=== PATIENT | male | born 1960 | race Caucasian/White ===

== ENCOUNTER 2018-04-17 17:29 | Emergency (ER) | payer MEDICARE ==
[2018-04-17] MEDS ORDERED: ASPIRIN 81 MG CHEW TAB PO ONE (17:37)
[2018-04-17 17:49] LABS: BASOPHILS % 0.6 (0.0-1.5); EOSINOPHILS % 1.8 % (0.0-6.8); MEAN CORPUSCULAR HEMOGLOBIN 30.7 pg (28.0-34.0); MEAN CORPUSCULAR VOLUME 91.9 fl (80.0-100.0); MONOCYTES % 4.8 % (0.0-11.0); NEUTROPHILS # 10.1 # k/uL (1.4-7.7)
--- NOTE | 2018-04-17 17:55 | ED Physician Documentation ---
Chest Pain - HISTORIAN Historian: patient - HPI Chief Complaint: General Adult Additional Information: Patient states that over 3 minutes he developed some left anterior chest pain that radiated in to the back of the chest around the costophrenic level. started at about 16:45. No precipitating cause noted. Has been power washing and twisting and bending most of the days. Pain got worse on the way here. Sharp stabbing pressure feeling noted. Nothing made the pain better. Movement and ? deep breathing would make it worse. Patient states that it was constant in nature with intermittant catching spasms like feeling. Patient denies any cough. Patient is not have a history of COPD. Patient the cholesterol level is normal. Patient does smoke approximately one quarter pack per day. Patient denies any previous cardiac problems that he is aware. Patient denies any hyper patient. Patient does not have a significant family history of coronary artery disease. Onset: hours (about 1 hour ago) Timing: sudden onset Duration: constant Last known Well Date: 04/17/18 Last Known Well Time: 16:45 Last known Well Code/Unknown Code: Known Context: activity Severity: moderate Quality: pressure, sharp, stabbing Chest Pain Radiation: back. denies: jaw, arms, neck, shoulders Chest Pain Signs/Symptoms: denies: nausea, vomiting, diaphoresis Worsened By: deep breaths, movement Relieved By: nothing - ROS CONST: none. denies: fever, chills MS/LYMPH: denies: ankle swelling GI/: denies: abdominal pain, problems urinating, vomiting, nausea, diarrhea, black stools - PAST HX PR risk factors: denies: hypertension, diabetes Type 2, hyperlipidemia, cardiac disease DVT/PE Risk Factors: denies: cancer, recent surgery GI disease: other (chronic constipation/diarrhe.) Lung disease: none Surgeries/Procedures: other (brain stimulator for chronic pain, has had multiple surgeries for injury related to an accident o the left arm) Immunizations: referred to PCP - SOCIAL HX Smoking History: less than 1 pack/day Drug Use: none - FAMILY HX Family HX: none - REVIEWED ASSESSMENTS Nursing Assessment Reviewed: Yes Vitals Reviewed: Yes <Herve Polk - Last Filed: 04/17/18 19:23> - VITAL SIGNS Vital Signs: Vital Signs Temp Pulse Resp BP Pulse Ox 72 20 148/98 96 04/17/18 19:00 04/17/18 17:29 04/17/18 17:29 04/17/18 19:00 <Linda Logan - Last Filed: 04/18/18 00:29> - PAST HX Allergies/Adverse Reactions: Allergies Allergy/AdvReac Type Severity Reaction Status Date / Time codeine Allergy Verified 04/17/18 17:54 Home Medications: Ambulatory Orders Medication Instructions Recorded Amitriptyline HCl 04/17/18 Aspirin [Alexa] 81 mg PO D 04/17/18 Dicyclomine HCl 04/17/18 Progress - Progress Progress: 2129: pain is better. Notified of need for more fluids he is agreeable. Refuses any meds for muscle relaxer DG <Linda Logan - Last Filed: 04/18/18 00:29> ED Results Lab/Radiology - Orders Orders: ED Orders Category Date Time Status Continuous EKG monitoring Q30M Care 04/17/18 17:37 Active Continuous Pulse Oximetry Q30M Care 04/17/18 17:[address] IV Lock 1T Care 04/17/18 17:37 Active CHEST 2VIEW [RAD] Routine Exams 04/17/18 Ordered CBC/PLATELET/DIFF Routine Lab 04/17/18 17:45 Completed CMP Routine Lab 04/17/18 17:45 Received CREATINE KINASE Routine Lab 04/17/18 17:45 Received TROPONIN I (cTnI) Stat Lab 04/17/18 17:45 Received URINALYSIS Routine Lab 04/17/18 Uncollected Aspirin Med 04/17/18 17:37 Discontinued 324 mg PO NOW ONE EKG WITH COMPARISON Stat Ther 04/17/18 17:37 Ordered <Herve Polk - Last Filed: 04/17/18 19:23> - Lab Results Lab Results: Lab Results 04/17/18 04/17/18 04/17/18 21:18 17:45 17:45 WBC RBC Hgb Hct MCV MCH MCHC RDW Plt Count Neut % (Auto) Lymph % (Auto) Dickens % (Auto) Eos % (Auto) Baso % (Auto) Neut # (Auto) Lymph # (Auto) Dickens # (Auto) Eos # (Auto) Baso # (Auto) Reactive Lymphs % Reactive Lymphs # Sodium 138 mmol/L mmol/L 139 mmol/L mmol/L (136-145) (136-145) Potassium 4.6 mmol/L mmol/L 4.3 mmol/L mmol/L (3.5-5.1) (3.5-5.1) Chloride 103 mmol/L mmol/L 99 mmol/L mmol/L (98-107) (98-107) Carbon Dioxide 28 mmol/L mmol/L 24 mmol/L mmol/L (22-30) (22-30) BUN 21 mg/dL H mg/dL 23 mg/dL H mg/dL (9-20) (9-20) Creatinine 1.20 mg/dL mg/dL 1.80 mg/dL H mg/dL (0.66-1.25) (0.66-1.25) Estimated Creat Clear 104 69 Est GFR ( Amer) > 60 50 L (60 - ) (60 - ) Est GFR (Non-Af Amer) > 60 41 L (60 - ) (60 - ) Glucose 111 mg/dL H mg/dL 124 mg/dL H mg/dL (74-106) (74-106) Calcium 8.9 mg/dL mg/dL 10.4 mg/dL H mg/dL (8.4-10.2) (8.4-10.2) Total Bilirubin 0.2 mg/dL mg/dL 0.4 mg/dL mg/dL (0.2-1.3) (0.2-1.3) AST 18 U/L U/L 26 U/L U/L (15-46) (15-46) ALT 24 U/L U/L 28 U/L U/L (13-69) (13-69) Alkaline Phosphatase 88 U/L U/L 112 U/L U/L (38-126) (38-126) Creatine Kinase 245 U/L H U/L (55-170) Troponin I < 0.03 ng/mL L ng/mL (0.03-0.06) Total Protein 7.4 g/dL g/dL 9.4 g/dL H g/dL (6.3-8.2) (6.3-8.2) Albumin 3.9 g/dL g/dL 5.2 g/dL H g/dL (3.5-5.0) (3.5-5.0) 04/17/18 17:45 WBC 13.70 K/ul H K/ul (4.00-12.00) RBC 5.10 M/ul M/ul (3.90-5.20) Hgb 15.7 g/dL g/dL (12.0-18.0) Hct 46.8 % % (37.0-53.0) MCV 91.9 fl fl (80.0-100.0) MCH 30.7 pg pg (28.0-34.0) MCHC 33.4 g/dL g/dL (30.0-36.0) RDW 13.9 % % (11.3-14.3) Plt Count 204 K/mm3 K/mm3 (130-400) Neut % (Auto) 73.6 % % (39.0-79.0) Lymph % (Auto) 17.5 % % (16.0-50.0) Dickens % (Auto) 4.8 % % (0.0-11.0) Eos % (Auto) 1.8 % % (0.0-6.8) Baso % (Auto) 0.6 (0.0-1.5) Neut # (Auto) 10.1 # k/uL H # k/uL (1.4-7.7) Lymph # (Auto) 2.4 # k/uL # k/uL (0.6-4.0) Dickens # (Auto) 0.7 # k/uL # k/uL (0.0-0.9) Eos # (Auto) 0.2 # k/uL # k/uL (0.0-0.6) Baso # (Auto) 0.1 # k/uL # k/uL (0.0-0.5) Reactive Lymphs % 1.7 % % (0.0-5.0) Reactive Lymphs # 0.2 # k/uL # k/uL (0.0-0.8) Sodium Potassium Chloride Carbon Dioxide BUN Creatinine Estimated Creat Clear Est GFR ( Amer) Est GFR (Non-Af Amer) Glucose Calcium Total Bilirubin AST ALT Alkaline Phosphatase Creatine Kinase Troponin I Total Protein Albumin - Orders Orders: ED Orders Category Date Time Status Continuous EKG monitoring Q30M Care 04/17/18 17:37 Active Continuous Pulse Oximetry Q30M Care 04/17/18 17:[address] IV Lock 1T Care 04/17/18 17:37 Active CHEST 2VIEW [RAD] Routine Exams 04/17/18 Completed CBC/PLATELET/DIFF Routine Lab 04/17/18 17:45 Completed CMP Routine Lab 04/17/18 17:45 Completed CMP Stat Lab 04/17/18 21:18 Completed CREATINE KINASE Routine Lab 04/17/18 17:45 Completed TROPONIN I (cTnI) Stat Lab 04/17/18 17:45 Completed URINALYSIS Routine Lab 04/17/18 19:59 Ordered 0.9 % Sodium Chloride [Normal Saline] 1,000 ml Med 04/17/18 19:00 Ordered IV .Q1H 0.9 % Sodium Chloride [Normal Saline] 1,000 ml Med 04/17/18 20:02 Discontinued IV Q1H Aspirin Med 04/17/18 17:37 Discontinued 324 mg PO NOW ONE EKG WITH COMPARISON Stat Ther 04/17/18 17:37 Ordered <Linda Logan - Last Filed: 04/18/18 00:29> Chest Pain Physical Exam - EXAM General Appearance: no acute distress, alert, moderate distress EENT: eye inspection normal, ENT inspection normal Neck: nml inspection, no carotid bruit. No: JVD present, lymphadenopathy Respiratory: no resp. distress, nml breath sounds, manifests distinct pain on movement (of LUE, tender to palpation over the left lower posterior rib cage area at the 8,9 level, no bony abnl noted, no suq air). No: resp.distress, wheezes, rales, rhonchi CVS: reg. rate & rhythm, no murmur, no gallop, no friction rub, pulses full, pulses equal Abdomen: soft, no organomegaly, normal bowel sounds, no abdominal bruit, no distension, non-tender Skin: warm/dry, normal color Extremities: non-tender, normal range of motion Neuro: oriented X3, CN's nml as tested, motor nml, sensation nml, mood/affect nml, cognition normal <Herve Polk - Last Filed: 04/17/18 19:23> Discharge <Herve Polk - Last Filed: 04/17/18 19:23> Comments: 1. Tylenol or Ibuprofen as needed for pain 2. Increase fluids 3. Follow up with PCP in 2-4 days for follow up 4. Return to ER for chest pain or concerns Decision to Admit: NO Date of Decison to Admit: 04/17/18 Decision Time: 22:40 <Linda Logan - Last Filed: 04/18/18 00:29> Clincal Impression: Chest pain Qualifiers: Chest pain type: unspecified Qualified Code(s): R07.9 - Chest pain, unspecified Referrals: Primary Doctor,No [Primary Care Provider] - 2 Days Condition: Stable Disposition: 01 HOME, SELF-CARE
[2018-04-17] MEDS ORDERED: 0.9 % SODIUM CHLORIDE 1,000 ML IV SCH (19:00)
[2018-04-17] MEDS ORDERED: 0.9 % SODIUM CHLORIDE 1,000 ML IV ONE ×2 (19:06→20:02)
--- NOTE | 2018-04-17 19:09 | Diagnostic Imaging Report ---
EL SAUL [facility] [id number] [facility] [address] [address] Report Submission Date: April 17, 2018 6:27:52 PM CDT Patient Study Name: MINERVA TAMEZ Date: April 17, 2018 6:07:28 PM CDT Modality Type: DX Gender: M Description: CHEST : 56 Institution: [facility] Physician: EL SAUL 2 views of the chest History: LEFT SIDED CHEST PAIN X 2-3 HOURS No prior studies for comparison Heart is normal in size. No focal consolidation, pleural effusion or pneumothorax. Multilevel thoracic spine degenerative changes are present. Wires are seen along the thoracic spine, may be related to DBS/ nerve stimulator. Impression: No focal consolidation or pleural effusion. Electronically signed on April 17, 2018 6:27:52 PM CDT by: Edith SERRA
[2018-04-17 21:32] LABS: eGFR (African) > 60; eGFR (Non-African) > 60
[2018-04-17 23:44] VITALS: BP 131/80
[2018-04-18 08:12] LABS: APPEARANCE,URINE CLEAR (CLEAR); COLOR,URINE AMBER (YELLOW); OCCULT BLOOD,URINE 1+ (NEGATIVE)
[2018-04-18 08:13] LABS: PH URINE 5.5 (5.0 - 8.0)
== END 2018-04-17 23:01 | disposition home or self-care (01) ==
LOC: ED 17:29
DX: R07.9 Chest pain, unspecified (principal)
CPT/HCPCS: 71046; 80053; 81002; 82550; 84484; 85025; 93005; J7030; 96360; 96361; 99285; S1016